=== PATIENT | female | born 1985 | race Caucasian/White ===

== ENCOUNTER 2019-02-04 14:30 | Outpatient (REF) | payer BC, SELFPAY | END 2019-02-04 14:50 | LOC: NCHCN 14:30 | PROVIDERS: PCP Nurse Practitioner Family; Visit Provider Nurse Practitioner Family | DX: E03.9 Hypothyroidism, unspecified (principal) | CPT/HCPCS: 84443 ==

== ENCOUNTER 2019-03-13 09:31 | Emergency (ER) | payer BC, SELFPAY ==
[2019-03-13 09:35] VITALS: BP 134/51; PULSE 84; RESP 16; TEMP 36.7; O2SAT 99
--- NOTE | 2019-03-13 09:46 | ED.GENADUL_ITS ---
Discharge Plan Disposition Patient Disposition: HOME Condition: Improving Discharge Details Chief Complaint: RespSymp Clinical Impression: Acute bronchitis, Chest wall muscle strain Primary Care Provider: Jaquelin Hardwick ED Provider: Eli Mckeon Home Meds and New Rx's Prescriptions: New lidocaine [Lidoderm] 5 % adhesive patch,medicated 1 patch TP DAILY PRN (Reason: pain) Qty: 15 RF: 0 benzonatate [Tessalon Perles] 100 mg capsule 100 mg PO TID PRN (Reason: cough) Qty: 10 RF: 0 prednisone 50 mg tablet 50 mg PO DAILY 5 Days Qty: 5 RF: 0 Continued levothyroxine 75 MCG tablet 75 mcg PO DAILY Qty: 90 RF: 4 Citalopram Hydrobromide [Citalopram HBr] 40 MG tablet 40 mg PO DAILY RF: 0 Discharge Instructions Instructions: Muscle Strain (ED), Acute Bronchitis (ED) Additional Instructions: Continue the Tylenol and Motrin as needed and directed for pain. Use the albuterol inhaler as needed and directed for shortness of breath. Take the Tessalon Perles as needed directed for cough. Take the steroids until finished. Drink plenty of fluids and get plenty of rest. Follow-up with your primary care doctor in 1 week for reevaluation. Return to the emergency department if you develop any worsening or new concerning symptoms. Discharge Data Discharge Physician: Eli Mckeon Medical Decision Making 33yo M w/ cough, chest congestion and shortness of breath for the past 5 days. Denies chance of . Denies fever. Vitals within normal limits. Normal heart rate, respiratory rate, oxygen saturation and afebrile. Patient appears nontoxic. Lungs mildly diminished throughout but without wheezing, or rhonchi. Discussed with patient at length that her symptom presentation likely consistent with bronchitis which is usually viral. As she has normal heart rate, oxygen saturation, equal breath sounds, do not see an indication for chest x-ray patient is agreeable. She was noted to be coughing during exam and holding her right ribs. The right rib pain appears to be musculoskeletal as it is tender to touch and worse with movement. No DVT/PE risk factors. She does complain of some mild shortness of breath at this time. Will give an albuterol neb treatment, dose of Tylenol, and Lidoderm patch and reassess. 1000 --patient feels better. Overall improvement in breath sounds. No wheezing or rhonchi noted. Patient feels good to go home. We will send home with a prescription for Tessalon Perles, prednisone, Lidoderm patch. She was also given albuterol inhaler. Discussed with patient that I do not think she needs antibiotics at this time and she is agreeable. She is instructed to follow-up with her primary care doctor for reevaluation if her symptoms do not improve or worsen as she may need antibiotics at that time. She is instructed to return here if worse. HPI General Mode of arrival: ambulatory . Date/Time Provider Initiated Documentation: 03/13/19 09:31 . Limitations to Documentation: no limitations . Information obtained by: patient . HPI Narrative: Patient is a 33-year-old female who presents the ED with a complaint of cough with chest congestion, shortness of breath and right-sided rib pain for the past 5 days. Patient state s her symptoms started with cold-like symptoms with nasal congestion and runny nose and then progressed to a cough. She states for the past 2 days she has had right lower rib pain that is worse with coughing. She is taken [id number] cough medication as well as Advil. Last dose of Advil 8 AM this morning. She also admits to a sore throat with coughing. She denies any known fever, ear sinan n, leg pain or swelling, recent travel, recent surgery, or recent antibiotics. Related Data Home Medications Medication Instructions Recorded Confirmed levothyroxine 75 mcg PO DAILY #90 tab-cap 08/08/14 03/13/19 Citalopram Hydrobromide 40 mg PO DAILY tab-cap 09/10/17 03/13/19 [Citalopram HBr] benzonatate [Tessalon Perles] 100 mg PO TID PRN #10 cap 03/13/19 lidocaine [Lidoderm] 1 patch TP DAILY PRN #15 each 03/13/19 prednisone 50 mg PO DAILY 5 Days #5 tab 03/13/19 Previous Rx's Medication Instructions Recorded benzonatate [Tessalon Perles] 100 mg PO TID PRN #10 cap 03/13/19 lidocaine [Lidoderm] 1 patch TP DAILY PRN #15 each 03/13/19 prednisone 50 mg PO DAILY 5 Days #5 tab 03/13/19 Allergies Allergy/AdvReac Type Severity Reaction Status Date / Time Penicillins Allergy Mild Skin Rash Unverified 03/13/19 09:51 General Stated Complaint: RespSymp DONI: 3 Review of Systems Review of Systems All systems reviewed & are unremarkable except as noted in HPI and below Constitutional Reports as per HPI, Denies chills and Denies fever(s) Eyes Denies blurry vision ENT Denies dizziness, Denies sore throat and Denies throat swelling Cardiovascular Denies chest pain and Reports dyspnea Respiratory Reports cough and Reports dyspnea Gastrointestinal Denies abdominal pain, Denies diarrhea and Denies vomiting Genitourinary Denies hematuria and Denies dysuria Musculoskeletal Denies back pain, Denies numbness and Reports other (R rib pain) Integumentary/Breasts Denies lesions and Denies rash Neurologic Denies dizziness, Denies focal weakness and Denies numbness Allergic/Immunologic Denies throat swelling PFSH Medical History Anxiety (Chronic) Depression Hypothyroidism Surgical History No significant past surgical history (Acute) Social History Smoking/Tobacco Use Status: Never Alcohol Intake: never Drug use: Never Substance use type: does not use Do you feel safe at home: Yes Do you feel safe in your relationship?: Yes Exam Const General: cooperative and healthy appearing Orientation: alert and awake HENMT Head: normal to inspection Ears: hearing grossly normal bilaterally, external ears normal and TM's normal bilaterally General nose exam: external nose normal Face and sinus: normal facial exam Mouth: oral mucosae normal Teeth and gingiva: dentition normal Throat: posterior oropharynx normal Eyes General: appearance normal, both eyes and all related structures Eyelids: eyelids normal EOM: EOM intact bilaterally Neck Neck: normal visual inspection Lymphatic: no lymphadenopathy noted Chest Chest: normal inspection of the chest Chest/axillae images: 1. Localized area of tenderness to R anterolateral inferior ribs. No rash, trauma, erythema noted. Resp Effort & Inspection: normal respiratory effort and able to speak in complete sentences Auscultation: clear to auscultation bilaterally Cardio Rate: regular rate Rhythm: regular rhythm GI Inspection: normal to inspection Palpation: soft, not firm, no guarding, no hepatosplenomegaly, no masses and nontender Auscultation: normal bowel sounds Skin General skin exam: no rashes or lesions noted Neuro General: alert and awake Cognition: normal cognition Speech: speech normal Gait: normal gait Motor: muscle tone normal throughout Sensory Exam: no sensory deficits noted Extrem General: normal to inspection, full ROM, normal capillary refill and no edema Psych Appearance: grossly normal Mental Status: mental status grossly normal Speech and Movement: speech and movement normal Affect: normal affect Thought Process: normal Course Vital Signs Temperature 98.1 F 03/13/19 09:35 Pulse 84 03/13/19 09:35 Respiratory Rate 16 03/13/19 09:35 Blood Pressure 134/51 L 03/13/19 09:35 Pulse Oximetry 99 03/13/19 09:35 Temperature 98.1 F 03/13/19 09:35 Temperature Source Temporal Artery Scan 03/13/19 09:35 Pulse 84 03/13/19 09:35 Respiratory Rate 16 03/13/19 09:35 Respiratory Effort Non-Labored 03/13/19 09:40 Respiratory Depth Normal 03/13/19 09:40 Blood Pressure 134/51 L 03/13/19 09:35 Blood Pressure Position Sitting 03/13/19 09:35 Pulse Oximetry 99 03/13/19 09:35 Oxygen Delivery Method Room Air 03/13/19 09:35 Oxygen Flow Rate 0 03/13/19 09:35 Pain Level 4 03/13/19 09:35
[2019-03-13 09:48] VITALS: PULSE 84; RESP 1; RESP 16; O2SAT 99
[2019-03-13] MEDS: Lidocaine 5% Patch 1 PATCH TP (09:48)
[2019-03-13] MEDS: Acetaminophen 325 MG TAB 650 MG PO (09:48)
[2019-03-13] MEDS: Albuterol/Ipratropium 3 ML UPD VIAL UPD (09:48)
[2019-03-13 10:06] VITALS: BP 109/62; PULSE 82; RESP 14; TEMP 36.9; O2SAT 98
[2019-03-13 10:19] VITALS: BP 109/62; PULSE 82; RESP 14; TEMP 36.9; O2SAT 98
[2019-03-13] MEDS: Albuterol HFA 8 GM 60 PUFF INH IH (10:21)
[2019-03-13] MEDS: Inhaler, Assist Device 1 EACH MC (10:21)
== END 2019-03-13 10:25 | disposition home or self-care (01) ==
PROVIDERS: Emergency Provider Physician Assistant; PCP Nurse Practitioner Family
DX: J20.9 Acute bronchitis, unspecified (principal); S29.011A Strain of muscle and tendon of front wall of thorax, initial encounter; X50.3XXA Overexertion from repetitive movements, initial encounter
CPT/HCPCS: 94640; 99283; J7620

== ENCOUNTER 2020-05-03 12:55 | Outpatient (REF) | payer BC, SELFPAY ==
[2020-05-03 16:12] LABS: TSH (W/Ref FT4) 2.96 uIU/mL (0.36-3.74)
== END 2020-05-03 13:15 ==
LOC: NCHCN 12:55
PROVIDERS: PCP Nurse Practitioner Family; Visit Provider Nurse Practitioner Family
DX: E03.9 Hypothyroidism, unspecified (principal); F32.9 Major depressive disorder, single episode, unspecified; G43.829 Menstrual migraine, not intractable, without status migrainosus
CPT/HCPCS: 84443

== ENCOUNTER 2021-01-24 08:45 | Outpatient (REF) | payer BC, SELFPAY ==
[2021-01-24 13:45] LABS: Anion Gap 8.6 mmol/L (3-11); BUN 9 mg/dL (7-18); CO2 28.4 mmol/L (21.0-32.0); Calcium 8.6 mg/dL (8.5-10.1); Calculated LDL 124 mg/dL (<100); Chloride 106 mmol/L (98-107); Cholesterol 205 mg/dL (<200); Glucose 87 mg/dL (74-106); HDL Cholesterol 60 mg/dL (40-60); Potassium 4.2 mmol/L (3.5-5.1); Sodium 143 mmol/L (136-145); TSH (W/Ref FT4) 2.72 uIU/mL (0.36-3.74); Triglyceride 108 mg/dL (<150)
== END 2021-01-24 08:46 | disposition home or self-care (01) ==
LOC: NCHCN 08:45
PROVIDERS: PCP Nurse Practitioner Family; Visit Provider Nurse Practitioner Family
DX: Z00.00 Encounter for general adult medical examination without abnormal findings (principal); E03.9 Hypothyroidism, unspecified; Z13.220 Encounter for screening for lipoid disorders
CPT/HCPCS: 80048; 80061; 84443

== ENCOUNTER 2021-11-17 23:06 | Emergency (ER) | payer OTHER, SELFPAY ==
--- NOTE | 2021-11-17 23:15 | DI.CT_ITS ---
Exam(s) CT HEAD CERVICAL SPINE WO EXAM: CT HEAD CERVICAL SPINE WO CLINICAL HISTORY: Fall, MANNING/neck pain. TECHNIQUE: Imaging Protocol: Axial computed tomography images with coronal and sagittal reformatted images were created and reviewed COMPARISON: CT CT HEAD WO from 01/28/2021 FINDINGS: BRAIN: There is increased paranasal sinus mucosal disease when compared to the prior study of January 2021. T his involves both maxillary sinuses and there is also complete opacification of the ethmoidal air maxx ls bilaterally. Also frontoethmoidal recesses and hypoplastic frontal sinuses are opacified. Spheno id sinuses are relatively clear. There are no fluid levels. Mastoid air cells are clear. There are no skull fractures. There is no evidence of intracranial hemorrhage, mass effect, or shift of midline structures. There are no extra-axial fluid collections. The ventricles are not enlarged or shifted and there is no blo od within the ventricular system nor within the basal cisterns. CERVICAL SPINE: There is no evidence of fracture nor listhesis. No significant prevertebral soft tissue swelling. There is no significant facet joint malalignment. No significant osseous lesions evident. IMPRESSION: No acute intracranial findings on this noninfused CT scan of the brain.Paranasal sinus disease noted, as described above. No evidence of cervical spine fracture, malalignment, nor acute compromise of the cervical spinal can al. RADIATION DOSE DELIVERED: 1,346.26mGy.cm Total DLP DATA REPOSITORY: All CT scans at this facility are submitted to the National Radiology Data Registry (NRDR) Dose Index Registry (DIR) with the [employer] (ACR). RADIATION OPTIMIZATION: All CT scans at this facility use at least one of these dose optimization te chniques: automated exposure control; mA and/or kV adjustment per patient size (includes targeted exa ms where dose is matched to clinical indication); or iterative reconstruction.
[2021-11-17 23:19] VITALS: BP 127/77; PULSE 82; RESP 16; TEMP 36.9; O2SAT 98
--- NOTE | 2021-11-17 23:35 | W.ED.GENAD ---
Discharge Plan Disposition Patient Disposition: HOME Condition: Improving Discharge Details Clinical Impression: Closed head injury, Acute cervical myofascial strain Primary Care Provider: Jaquelin Hardwick ED Provider: Chris Sanders Home Meds and New Rx's Prescriptions: New methocarbamol 500 mg tablet 500 mg PO Q6H PRN (Reason: Back pain or spasm) Qty: 14 0RF Continued levothyroxine 75 MCG tablet 75 mcg PO DAILY Qty: 90 4RF Citalopram Hydrobromide [Citalopram HBr] 40 MG tablet 40 mg PO DAILY 0RF acetaminophen 500 mg Tablet 1,000 mg PO PRN [id number] Discharge Instructions Instructions: Cervical Strain (ED), Head Injury (ED) Additional Instructions: May use additional Zofran at home for persistent nausea. Methocarbamol as needed for muscular pain. Tylenol and ibuprofen as needed for pain. Return to the ER for increasing discomfort or any other acute concerns. Medical Decision Making This is a 36-year-old female who resents with progressive posterior headache and neck pain throughout the day after falling while skiing. She had been helmeted while skiing on a [place] when she fell backwards striking her head. She did not have a loss of consciousness. She continued to ski throughout the morning. She then developed progressive neck pain and headache this evening. Patient's vital signs are normal, she does have posterior neck tenderness. She is placed in a c-collar. Differential diagnosis includes intracranial injury, skull, cervical spine fracture. Patient referred for imaging. CT: No evidence of acute injury. See formal report. Offer methocarbamol for home. Patient's nausea is improving with Zofran. She is stable and appropriate for discharge HPI General Mode of arrival: ambulatory. Date/Time Provider Initiated Documentation: 11/17/21 23:08. Limitations to Documentation: no limitations. Information obtained by: patient. History of Present Illness 36 year old F presents to the emergency department with the chief complaint of Fell and struck head skiing, now headache and neck pain, described as moderate, Quality is described as dull and constant, and is localized to the head and neck. Patient reports no radiation. Patient started experiencing this hour(s) and it has been constant. improves with No relieving factors improve symptom(s), No exacerbating factors reported . Patient notes loss of appetite; denies confusion, fever/chills and syncope. Patient did receive the following treatments prior to arrival, other (Acetaminophen) Related Data Home Medications Medication Instructions Recorded Confirmed levothyroxine 75 mcg tablet 75 mcg PO DAILY #90 tab-cap 08/08/14 11/17/21 Citalopram Hydrobromide 40 mg PO DAILY tab-cap 09/10/17 11/17/21 [Citalopram HBr] acetaminophen 500 mg tablet 1,000 mg PO PRN PRN 11/17/21 11/17/21 methocarbamol 500 mg tablet 500 mg PO Q6H PRN #14 tab 11/18/21 Previous Rx's Medication Instructions Recorded methocarbamol 500 mg tablet 500 mg PO Q6H PRN #14 tab 11/18/21 Allergies Allergy/AdvReac Type Severity Reaction Status Date / Time Penicillins Allergy Mild Skin Rash Unverified 11/17/21 23:26 General Stated Complaint: HeadInjury DONI: 2 Review of Systems Narrative: Feels nauseated, no vomiting, no change to vision. Not have a loss of consciousness. No motor weakness or numbness of the upper extremity. 6 systems were reviewed and otherwise negative PFSH All Active Problems (Updated 11/18/21 @ 01:02 by Chris Sanders MD) Closed head injury (Acute) Acute cervical myofascial strain (Acute) 26 weeks gestation of (Acute 07/28/14) Abdominal pain (Acute 07/28/14) Medical History Anxiety Depression Hypothyroidism Surgical History No significant past surgical history Social History Smoking/Tobacco Use Status: Never Smoking risk assessment performed?: Yes Alcohol Intake: never Drug use: Never Substance use type: does not use Do you feel safe at home: Yes Do you feel safe in your relationship?: Yes Exam Narrative Exam Narrative: GEN: awake, alert, oriented 3. Pleasant, well groomed, interactive. HEAD: Normocephalic, atraumatic ENT: Mucous membranes moist, oropharynx unremarkable, External ear exam unremarkable EYES: PERRL, EOMI NECK: Tender posteriorly, no step-off or deformity appreciated. Bilateral muscular neck tenderness and mild spasm present. Back: Nontender CHEST/RESP: Nontender, clear to auscultation bilateral, no wheeze/rhonchi/rales CARDIOVASCULAR: RRR, no murmur, rub amisha. 2+ Rad pulse bilateral ABDOMEN: Soft, nontender, no mass. +Bowel sounds EXT: Full ROM, no edema, no rash Neuro: Grossly normal neurologic exam, conversant, interactive. Psych: Speech fluent, thoughts congruent, affect normal Course Vital Signs Vital signs: Vital Signs Temperature 36.9 C 11/17/21 23:19 Pulse 82 11/17/21 23:19 Respiratory Rate 16 11/17/21 23:19 Blood Pressure 127/77 11/17/21 23:19 Pulse Oximetry 98 11/17/21 23:19 Temperature 36.9 C 11/17/21 23:19 Temperature Source Temporal Artery Scan 11/17/21 23:19 Pulse 82 11/17/21 23:19 Respiratory Rate 16 11/17/21 23:19 Blood Pressure 127/77 11/17/21 23:19 Blood Pressure Position Sitting 11/17/21 23:19 Pulse Oximetry 98 11/17/21 23:19 Oxygen Delivery Method Room Air 11/17/21 23:19 Oxygen Flow Rate 0 11/17/21 23:19 Pain Level 6 11/17/21 23:19
[2021-11-17] MEDS: Ibuprofen 800 MG TAB PO (23:43)
[2021-11-18] MEDS: Ondansetron O.D.T. 4 MG TABEF PO (00:27)
--- NOTE | 2021-11-18 00:57 | DI.VRAD_ITS ---
PROCEDURE INFORMATION: Exam: CT Head Without Contrast Exam date and time: 11/17/2021 11:29 PM Age: 36 years old Clinical indication: Injury or trauma; Blunt trauma (contusions or hematomas); Without loss of consciousness; Injury date: 11/17/21; Injury details: Fall while skiing, andrews/neck pain TECHNIQUE: Imaging protocol: Computed tomography of the head without contrast. Radiation optimization: All CT scans at this facility use at least one of these dose optimization techniques: automated exposure control; mA and/or kV adjustment per patient size (includes targeted exams where dose is matched to clinical indication); or iterative reconstruction. COMPARISON: CT HEAD WO 01/28/2021 1:28 PM FINDINGS: Brain: The brain parenchyma is normal appearance. No intracranial hemorrhage. No midline shift. Cerebral ventricles: No hydrocephalus. Paranasal sinuses: Moderate mucosal thickening within the bilateral ethmoid sinuses. Mild mucosal thickening within the remaining paranasal sinuses. Mastoid air cells: The mastoid air cells are well aerated. Bones/joints: Unremarkable. No acute fracture. Soft tissues: Unremarkable. IMPRESSION: 1. No acute intracranial abnormality. 2. Mild paranasal sinus disease. PROCEDURE INFORMATION: Exam: CT Cervical Spine Without Contrast Exam date and time: 11/17/2021 11:29 PM Age: 36 years old Clinical indication: Injury or trauma; Blunt trauma (contusions or hematomas); Without loss of consciousness; Injury date: 11/17/21; Injury details: Fall while skiing, andrews/neck pain TECHNIQUE: Imaging protocol: Computed tomography images of the cervical spine without contrast. Radiation optimization: All CT scans at this facility use at least one of these dose optimization techniques: automated exposure control; mA and/or kV adjustment per patient size (includes targeted exams where dose is matched to clinical indication); or iterative reconstruction. COMPARISON: CT HEAD WO 01/28/2021 1:28 PM FINDINGS: Bones/joints: No acute fracture. Normal alignment. Discs/Spinal canal/Neural foramina: No evidence for high-grade spinal canal or neural foraminal stenosis at any level. Lungs: Lung apices are normal. Soft tissues: Unremarkable. IMPRESSION: No evidence for an acute cervical spine fracture. Dictated and Authenticated by: Kalani Muller MD. Ordering:AIDA Perez MD
[2021-11-18] MEDS: Methocarbamol 500 MG TAB 1000 MG PO (01:05)
[2021-11-18] MEDS: Ondansetron O.D.T. 4 MG TABEF, 3 TABS/BTL PO (01:06)
[2021-11-18 01:07] VITALS: BP 115/71; PULSE 76; RESP 18; O2SAT 100
== END 2021-11-18 01:11 | disposition home or self-care (01) ==
PROVIDERS: Emergency Provider Emergency Medicine; PCP Nurse Practitioner Family
DX: S09.8XXA Other specified injuries of head, initial encounter (principal); S16.1XXA Strain of muscle, fascia and tendon at neck level, initial encounter; V00.321A Fall from snow-skis, initial encounter; R11.0 Nausea
CPT/HCPCS: 99284; 70450; 72125; 99283

== ENCOUNTER 2022-05-13 21:12 | Outpatient (REF) | payer BC, SELFPAY ==
[2022-05-13 20:15] LABS: TSH (W/Ref FT4) 1.79 uIU/mL (0.36-3.74)
== END 2022-05-13 21:13 | disposition home or self-care (01) ==
LOC: NCHCN 21:12
PROVIDERS: PCP Nurse Practitioner Family; Visit Provider Nurse Practitioner Family
DX: E03.9 Hypothyroidism, unspecified (principal)
CPT/HCPCS: 84443

== ENCOUNTER 2022-06-06 16:19 | Outpatient (REF) | payer BC, SELFPAY ==
--- NOTE | 2022-06-06 15:40 | PAPFT_PTH ---
PATIENT: Lore Azevedo LOC: [facility] U#:[id number] AGE/SX: 37/F ROOM: RE06/06/[address]: Shila Streeter CNM : 1985 BED: DIS: 06/06/2022 SPEC #: [id number] RECD: 06/06/22 16:29 STATUS: FLORENTINOChiara REQ #: [id number] IRINEO: 06/06/22 15:[address]: Shila Streeter DEPT: [facility] Cytology RECD BY: Valery Dutta ENTERED: 06/06/22 16:30 SP TYPE: PAPFT OTHR DR: Jaquelin Hardwick Tissues: 1 - CX/ENDOCX FOR PAP SMEARS Procedures: PAP THIN PREP/U[facility] Screening HPV DNA PROBE Comments: [id number]
== END 2022-06-06 16:20 | disposition home or self-care (01) ==
LOC: LBN 16:19
PROVIDERS: PCP Nurse Practitioner Family; Visit Provider Advanced Practice Midwife
DX: Z12.4 Encounter for screening for malignant neoplasm of cervix (principal); Z11.51 Encounter for screening for human papillomavirus (HPV)
CPT/HCPCS: 88142; 87624

== ENCOUNTER 2022-07-11 17:19 | Outpatient (REF) | payer BC, SELFPAY | END 2022-07-11 17:20 | disposition home or self-care (01) | LOC: LBN 17:19 | PROVIDERS: PCP Nurse Practitioner Family; Visit Provider Advanced Practice Midwife | DX: N89.8 Other specified noninflammatory disorders of vagina (principal) | CPT/HCPCS: 87480; 87510; 87660 ==

== ENCOUNTER → 2022-09-26 00:45 | Outpatient (CLI) | payer BC, SELFPAY ==
--- NOTE | 2022-09-26 | DI.RAD_ITS ---
Exam(s) RF BARIUM SWALLOW EXAM: RF BARIUM SWALLOW CLINICAL HISTORY: EPIGASTRIC ABD PAIN, EVALUATE FOR HIATAL HERNIA,RING,STRICTURE TECHNIQUE: 2D and realtime digital imaging was performed. CONTRAST MATERIAL: Oral barium contrast was administered. COMPARISON: No exams were available for comparison FINDINGS: CHEST X-RAY: The heart and pulmonary vasculature are within normal limits. The lungs are clear. No pl eural effusion or pneumothorax is present. The bones are within normal limits for the patient's age. ESOPHAGRAM: The esophagus is patent with no evidence for erosions, fold thickening, strictures, or ma sses. With regards to the motility, there is a normal primary stripping wave. No tertiary contraction s were noted. There is no hiatal hernia or gastroesophageal reflux. IMPRESSION: Normal esophagram RADIATION DOSE DELIVERED: gayathri Nielsen=14.2 mGy
--- NOTE | 2022-09-26 | DI.US_ITS ---
Exam(s) US ABDOMEN LIMITED EXAM: US ABDOMEN LIMITED CLINICAL HISTORY: EPIGASTRIC ABD PAIN, R10.13,GE REFLUX DISEASE,EARLY SATEITY,R68.81 TECHNIQUE: Ultrasound abdomen performed using standard protocol. COMPARISON: No priors for comparison. FINDINGS: PANCREAS: Normal where visualized. LIVER: Normal. Hepatopedal flow in the Portal Vein. The liver measures in 18.4 cm length. GALLBLADDER: No evidence of cholelithiasis. No evidence of wall thickening. No pericholecystic fluid identified. BILIARY SYSTEM: Common bile duct measures < 7 mm. No intrahepatic biliary ductal dilation. SAUCEDA'S SIGN: Negative. RIGHT KIDNEY: Kidney is normal in size. No evidence of renal calculi. No evidence of hydronephrosis. No renal mass or cyst identified. ASCITES: None seen. IMPRESSION: Normal sonographic appearance of the upper abdomen. DATA REPOSITORY:
[2022-09-26] MEDS: Barium Sulfate 60% W/V 355 ML BTL PO (09:42)
[2022-09-26] MEDS: Barium Sulfate 98% W/W 140 ML BTL PO (09:43)
[2022-09-26] MEDS: Barium Sulfate 700 MG TAB PO (09:43)
[2022-09-26] MEDS: Simethicone/Sod Bicarb/Cit Ac, 4 gram PACKET 1 PACKET PO (09:46)
== END ==
PROVIDERS: PCP Nurse Practitioner Family; Visit Provider Nurse Practitioner Family
DX: R10.13 Epigastric pain (principal); K21.9 Gastro-esophageal reflux disease without esophagitis; R68.81 Early satiety; R07.2 Precordial pain; R12 Heartburn
CPT/HCPCS: 74221; 76705; J3490

== ENCOUNTER 2023-03-31 12:53 | Outpatient (REF) | payer BC, SELFPAY ==
[2023-03-31 19:37] LABS: HCT 35.8 % (36.0-46.0); HGB 11.2 g/dL (11.2-15.7); MCH 24.6 pg (27.0-33.0); MCHC 31.3 % (32.0-36.0); MCV 79 fL (80-95); MPV 10.7 fL (8.0-11.0); Platelet Count 272 10^3/uL (130-400); RBC 4.55 10^6/uL (3.93-5.22); RDW 15.7 % (11.7-14.6); WBC 6.11 10^3/uL (4.4-10.8)
[2023-03-31 20:21] LABS: TSH 1.93 uIU/mL (0.36-3.74)
== END 2023-03-31 12:54 | disposition home or self-care (01) ==
LOC: NCHCN 12:53
PROVIDERS: PCP Nurse Practitioner Family; Visit Provider Nurse Practitioner Family
DX: Z13.0 Encounter for screening for diseases of the blood and blood-forming organs and certain disorders involving the immune mechanism (principal); E03.9 Hypothyroidism, unspecified
CPT/HCPCS: 85027; 84443

== ENCOUNTER 2023-09-19 14:10 | Outpatient (REF) | payer BC, SELFPAY | END 2023-09-19 14:11 | disposition home or self-care (01) | LOC: NCHCN 14:10 | PROVIDERS: PCP Nurse Practitioner Family; Visit Provider Nurse Practitioner Family | DX: J02.9 Acute pharyngitis, unspecified (principal) | CPT/HCPCS: 87070 ==

== ENCOUNTER 2024-04-01 15:53 | Outpatient (REF) | payer BC, SELFPAY ==
[2024-04-01 16:12] LABS: Abs Immature Grans 0.02 10^3/uL (0.0-0.06); Absolute Basophil Count 0.06 10^3/uL (0.0-0.2); Absolute Eosinophil Count 0.39 10^3/uL (0.0-0.7); Basophils % 0.8 %; Eosinophils % 5.2 %; HCT 39.6 % (36.0-46.0); HGB 13.5 g/dL (11.2-15.7); Immature Grans % 0.3 %; Lymphocytes % 25.4 %; MCH 30.5 pg (27.0-33.0); MCHC 34.1 % (32.0-36.0); MCV 89 fL (80-95); MPV 10.5 fL (8.0-11.0); Monocytes % 5.4 %; Neutrophils % 62.9 %; Platelet Count 252 10^3/uL (130-400); RBC 4.43 10^6/uL (3.93-5.22); RDW 13.2 % (11.7-14.6); RDW-SD 43.8 fL; WBC 7.47 10^3/uL (4.4-10.8)
[2024-04-01 16:31] LABS: ALT 20 U/L (14-59); AST 14 U/L (15-37); Albumin 3.8 g/dL (3.4-5.0); Alkaline Phosphatase 52 U/L (46-116); Anion Gap 8.6 mmol/L (3-11); BUN 11 mg/dL (7-18); Bilirubin, Total 0.47 mg/dL (0.2-1.0); CO2 28.4 mmol/L (21.0-32.0); CREATININE 0.9 mg/dL (0.55-1.02); Calcium 8.7 mg/dL (8.5-10.1); Chloride 104 mmol/L (98-107); Ferritin 26 ng/mL (8-252); Glucose 90 mg/dL (74-106); Hemoglobin A1C 5.2 % (<5.7); Sodium 141 mmol/L (136-145); TSH 2.24 uIU/Ml (0.36-3.74); Total Protein 6.7 g/dL (6.4-8.2)
[2024-04-01 16:58] LABS: Iron 104 ug/dL (50-170); Total Iron Binding Capacity 311 ug/dL (250-450); Transferrin Sat 33 % (15-50)
[2024-04-01 18:02] LABS: FREE T4 0.98 ng/dL (0.76-1.46)
== END 2024-04-01 15:54 | disposition home or self-care (01) ==
LOC: NCHCN 15:53
PROVIDERS: Visit Provider Nurse Practitioner Family
DX: E03.9 Hypothyroidism, unspecified (principal); F41.9 Anxiety disorder, unspecified; Z68.29 Body mass index [BMI] 29.0-29.9, adult
CPT/HCPCS: 80053; 82728; 83036; 83540; 83550; 84439; 84443; 85025

== ENCOUNTER 2024-06-27 02:37 | Outpatient (CLI) | payer BC, SELFPAY ==
--- NOTE | 2024-06-27 | DI.MAMMO_ITS ---
Exam(s) MAMMO SCREENING EXAM: MAMMO SCREENING CLINICAL HISTORY: BASELINE, SCREENING, Z12.39 TECHNIQUE: Bilateral full field digital CC and MLO mammographic images were obtained with 3D tomosyn thesis and utilizing computer aided detection (CAD). COMPARISON: This is a baseline examination. FINDINGS: Masses/Architectural Distortion: None seen. Microcalcifications: No suspicious pleomorphic-type are seen. Skin Thickening/Nipple Retraction: None. IMPRESSION: 1. No evidence for malignancy is seen at this time. 2. Unless there is more urgent need, screening mammography is recommended, as per [employer] guidelines. BI-RADS Category 1 - Negative Breast Density - Category B - Scattered areas of fibroglandular density Breast density category C or D implies that the patient has dense breast tissue. Dense breast tissue is very common and is not abnormal but dense breast tissue can make it harder to find cancer on a ma mmogram. Also, dense breast tissue may increase their breast cancer risk. This information about the result of the mammogram report was provided to the patient to raise their awareness. Use this report when you speak with the patient about their risks for breast cancer, which includes their family hist ory. At that time, you may recommend for more screening tests (Ultrasound or MRI) as they might be us eful based on their risk. A negative radiographic report should not delay biopsy if a dominant or clinically suspicious mass is present. Up to ten percent of cancers are not identified on mammography. A negative report may reinforce clinical impression. Adenosis and dense breasts may obscure an underlying neoplasm. False positive reports average 6 to 10%. Patient will receive a letter notifying them of these results.
== END 2024-06-27 02:57 ==
LOC: DI 02:37
PROVIDERS: Visit Provider Nurse Practitioner Family
DX: Z12.31 Encounter for screening mammogram for malignant neoplasm of breast (principal)
CPT/HCPCS: 77063; 77067

== ENCOUNTER 2025-08-08 14:10 | Outpatient (REF) | payer OTHER, SELFPAY ==
[2025-08-08 19:23] LABS: HCT 40.7 % (36.0-46.0); HGB 14.1 g/dL (11.2-15.7); MCH 31.4 pg (27.0-33.0); MCHC 34.6 % (32.0-36.0); MCV 91 fL (80-95); MPV 10.5 fL (8.0-11.0); Platelet Count 255 10^3/uL (130-400); RBC 4.49 10^6/uL (3.93-5.22); RDW 12.1 % (11.7-14.6); RDW-SD 40.2 fL; WBC 7.63 10^3/uL (4.4-10.8)
[2025-08-08 19:38] LABS: Hemoglobin A1C 5.1 % (<5.7)
[2025-08-08 19:42] LABS: Iron 82 ug/dL (50-170); Total Iron Binding Capacity 284 ug/dL (250-450)
[2025-08-08 19:51] LABS: ALT 25 U/L (14-59); AST 21 U/L (15-37); Albumin 3.8 g/dL (3.4-5.0); Alkaline Phosphatase 62 U/L (46-116); Anion Gap 9.2 mmol/L (3-11); BUN 12 mg/dL (7-18); Bilirubin, Total 0.4 mg/dL (0.2-1.0); CO2 27.8 mmol/L (21.0-32.0); Calcium 8.7 mg/dL (8.5-10.1); Chloride 102 mmol/L (98-107); Cholesterol 215 mg/dL (<200); Ferritin 36 ng/mL (8-252); Glucose 111 mg/dL (74-106); HDL Cholesterol 63 mg/dL (>or=50); Potassium 3.6 mmol/L (3.5-5.1); Sodium 139 mmol/L (136-145); TSH (W/Ref FT4) 2.03 uIU/mL (0.36-3.74); Total Protein 6.8 g/dL (6.4-8.2)
== END 2025-08-08 14:11 | disposition home or self-care (01) ==
LOC: NCHCN 14:10
DX: Z00.00 Encounter for general adult medical examination without abnormal findings (principal); E03.9 Hypothyroidism, unspecified; E61.1 Iron deficiency
CPT/HCPCS: 80053; 80061; 85027; 82728; 83036; 83540; 83550; 84443